=== PATIENT | female | born 1975 | race Caucasian/White ===

== ENCOUNTER 2017-03-21 10:04 | Emergency (ER) | payer SELFPAY ==
[2017-03-21 10:14] VITALS: BP 152/101
[2017-03-21 10:50] LABS: Bacteria,Urine 1+ /HPF (Negative); Bilirubin,Urine NEG (Negative); Blood,Urine MOD (Negative); Ketones,Urine NEG (Negative); Leukocyte Esterase,Urine LG (Negative); Mucus,Urine FEW /HPF; Nitrite,Urine NEG (Negative); Protein,Urine <15 mg/dL mg/dL (Negative); Urobilinogen,Urine < 2.0 mg/dL (<2.0)
[2017-03-21 10:53] LABS: WBC,Urine > 182.0 /HPF (0.0-6.0)
--- NOTE | 2017-03-21 18:47 | Emergency Department Report ---
Entered by ROXANN SHAW, acting as scribe for GREG SANCHEZ NP. ED Female HPI - General Chief complaint: Urogenital-Female Stated complaint: POSS UTI Time Seen by Provider: 03/21/17 10:20 Source: patient Mode of arrival: Ambulatory Limitations: No Limitations - History of Present Illness Initial comments: This is a 41 y/o female, nontoxic, well nourished in appearance, no acute signs of distress with PMHx of GERD, HTN and ulcers, presents with possible UTI that began 1 week ago. Associated symptoms include clear vaginal discharge, urgency, frequency and dysuria but she denies back pain, nausea, vomiting, fever and chills. Denies CP, SOB, abdominal pain, pelvic pain, back pain, stiff neck, n/ v. Patient stated has a yellowisj discharge a couple of weeks ago but denies currently. Patient denies possibility of any STD exposure and is not concerned about it. Symptoms are described as a pressure on bladder and burning with urination. No aggravating factors and no alleviating factors despite taking OTC meds. NKDA. DEVRIES Complaint: dysuria, other (Possible UTI) Onset/Timin -: week(s) (1) Radiation: non-radiating Severity: severe Severity scale (0 -10): 10 Quality: burning, other (pressure) Consistency: constant Improves with: none Worsens with: none Are you Now?: No Last Menstrual Period: 03/06/17 EDC: 12/11/17 Associated Symptoms: vaginal discharge, dysuria, other (frequency, urgency, no back pain). denies: vaginal bleeding, abdominal pain, nausea/vomiting, fever/ chills, headaches, loss of appetite, hematuria, rash, seizure, shortness of breath, syncope, weakness - Related Data Sexually active: Yes Previous Rx's Medication Instructions Recorded Last Taken Type Nitrofurantoin Harlan/M-Cryst 100 mg PO Q12HR 7 Days 03/21/17 Unknown Rx [Macrobid CAP] Allergies Allergy/AdvReac Type Severity Reaction Status Date / Time latex Allergy Swelling Verified 03/21/17 10:14 Penicillins Allergy Anaphylaxis Verified 03/21/17 10:14 ED Review of Systems Comment: All other systems reviewed and negative Constitutional: denies: chills, fever Eyes: as per HPI ENT: denies: ear pain, throat pain Respiratory: denies: cough, shortness of breath, wheezing Cardiovascular: denies: chest pain, palpitations Endocrine: no symptoms reported Gastrointestinal: denies: nausea, vomiting Genitourinary: urgency, dysuria, frequency, discharge (clear) Musculoskeletal: denies: back pain Skin: denies: rash, lesions Neurological: denies: headache, weakness, paresthesias Psychiatric: denies: anxiety, depression Hematological/Lymphatic: denies: easy bleeding, easy bruising ED Past Medical Hx - Past Medical History Hx Hypertension: Yes (no meds) Hx GERD: Yes Additional medical history: ulcers - Surgical History Hx Breast Surgery: Yes (milk ducts right breast removed) Additional Surgical History: tubal ligation - Social History Smoking Status: Current Every Day Smoker Substance Use Type: Alcohol, Marijuana - Medications Home Medications: Home Medications Medication Instructions Recorded Confirmed Last Taken Type Nitrofurantoin Harlan/M-Cryst 100 mg PO Q12HR 7 Days 03/21/17 Unknown Rx [Macrobid CAP] ED Physical Exam - General Limitations: No Limitations General appearance: alert, in no apparent distress - Head Head exam: Present: atraumatic, normocephalic, normal inspection - Eye Eye exam: Present: normal appearance, PERRL, EOMI. Absent: scleral icterus, conjunctival injection, nystagmus, periorbital swelling, periorbital tenderness Pupils: Present: normal accommodation - ENT ENT exam: Present: normal exam, normal orophraynx, mucous membranes moist, TM's normal bilaterally, normal external ear exam - Neck Neck exam: Present: normal inspection, full ROM. Absent: tenderness, meningismus, lymphadenopathy, thyromegaly - Respiratory Respiratory exam: Present: normal lung sounds bilaterally. Absent: respiratory distress, wheezes, rales, rhonchi, stridor, chest wall tenderness, accessory muscle use - Cardiovascular Cardiovascular Exam: Present: regular rate, normal rhythm, normal heart sounds. Absent: bradycardia, tachycardia, irregular rhythm, systolic murmur, diastolic murmur, rubs, gallop - GI/Abdominal GI/Abdominal exam: Present: soft, normal bowel sounds. Absent: distended, tenderness, guarding, rebound, rigid, diminished bowel sounds - External exam: Present: normal external exam. Absent: erythema, swelling, lesions, lacerations, ecchymosis, bleeding Speculum exam: Present: normal speculum exam. Absent: erythema, vaginal discharge, cervical discharge, vaginal bleeding, foreign body, tissue, laceration Bi-manual exam: Present: normal bi-manual exam. Absent: cervical motion tendernes, adnexal tenderness, adnexal mass, uterine enlargement, uterine tenderness - Extremities Exam Extremities exam: Present: normal inspection, full ROM, normal capillary refill. Absent: tenderness, pedal edema, joint swelling, calf tenderness - Back Exam Back exam: Present: normal inspection, full ROM. Absent: tenderness, CVA tenderness (R), CVA tenderness (L), muscle spasm, paraspinal tenderness, vertebral tenderness, rash noted - Neurological Exam Neurological exam: Present: alert, oriented X3, CN II-XII intact, normal gait - Psychiatric Psychiatric exam: Present: normal affect, normal mood. Absent: depressed, agitated - Skin Skin exam: Present: warm, dry, intact, normal color. Absent: rash - Other Other exam information: During external/speculum exam clinical recruiter present Roxann Shaw. ED Course Vital Signs 03/21/17 10:10 Temperature 98.7 F Pulse Rate 66 Respiratory 17 Rate Blood Pressure 152/101 O2 Sat by Pulse 100 Oximetry ED Medical Decision Making - Medical Decision Making Ed course: This is a 41-year-old female that presents with UTI and discharge 1- after my physical exam, a UA, urine hCG qualitative and gonorrhea Chlamydia/ wet prep has been obtained. 2- patient was instructed to follow-up in 3-5 days at medical records for results of gonorrhea/chlamydia. 3- Patient received Macrobid for 7 days at the time of d/c. 4- patient was also instructed to follow-up with her primary care doctor in 3-5 days. 5- at time time of discharge, the patient does not seem toxic or ill in appearance. No acute signs of distress noted. Patient agrees to discharge treatment plan of care. No further questions noted by the patient. ED Disposition Clinical Impression: UTI (urinary tract infection) Disposition: - TO HOME OR SELFCARE Is pt being admited?: No Does the pt Need Aspirin: No Condition: Stable Instructions: Nitrofurantoin Macrocrystals (By mouth), Urinary Tract Infection in Women (ED) Additional Instructions: Return back to medical records and 3-5 days for results of gonorrhea and chlamydia Take full course of antibiotics as prescribed. Follow-up with her primary care doctor in 3-5 days or if symptoms worsen continue an unbearable report back to emergency room as was possible. Prescriptions: Nitrofurantoin Harlan/M-Cryst [Macrobid CAP] 100 mg PO Q12HR 7 Days Referrals: PRIMARY CARE, [Primary Care Provider] - 3-5 Days [facility] [Outside] - 3-5 Days [facility] [Outside] - 3-5 Days ARIAS PONCE MD [Staff Physician] - 3-5 Days Forms: Work/School Release Form(ED) This documentation as recorded by the VALERIA stevens ELIZABETH,accurately reflects the service I personally performed and the decisions made by me,GREG SANCHEZ, MACHINE TRIMMER.
== END 2017-03-21 11:36 | disposition home or self-care (01) ==
LOC: ED 10:04
DX: N39.0 Urinary tract infection, site not specified (principal); I10 Essential (primary) hypertension; K21.9 Gastro-esophageal reflux disease without esophagitis; F17.200 Nicotine dependence, unspecified, uncomplicated; F12.10 Cannabis abuse, uncomplicated
CPT/HCPCS: 81001; 81025; 87210; 87591; 99284

== ENCOUNTER 2017-05-04 15:26 | Emergency (ER) | payer SELFPAY ==
[2017-05-04 16:03] VITALS: BP 180/101
[2017-05-04] MEDS ORDERED: NACL 0.9% 1000 ML 1,000 ML IV ONE (16:03)
[2017-05-04 16:33] LABS: Basophils % (Auto) 0.6 % (0.0-1.8); Eosinophils % (Auto) 1.7 % (0.0-4.3); Hematocrit 39.2 % (30.3-42.9); Hemoglobin 13.3 gm/dl (10.1-14.3); Mean Corpuscular HGB Conc 34 % (30-34); Mean Corpuscular Hemoglobin 32 pg (28-32); Mean Corpuscular Volume 95 fl (79-97); Platelet Count 232 K/mm3 (140-440); Red Blood Count 4.14 M/mm3 (3.65-5.03); White Blood Count 4.6 K/mm3 (4.5-11.0)
[2017-05-04 16:43] LABS: INR 0.95 (0.87-1.13); Partial Thromboplastin Time 27.2 Sec. (24.2-36.6)
[2017-05-04 16:55] LABS: Alanine Aminotransferase 10 units/L (7-56); Albumin 3.7 g/dL (3.9-5); Albumin/Globulin Ratio 1.6 %; Alkaline Phosphatase 47 units/L (35-129); Anion Gap 15 mmol/L; BUN/Creatinine Ratio 5.71; Blood Urea Nitrogen 4 mg/dL (7-17); Calcium 8.3 mg/dL (8.4-10.2); Carbon Dioxide 24 mmol/L (22-30); Chloride 103.3 mmol/L (98-107); Glucose 86 mg/dL (65-100); Lipase 21 units/L (13-60); Potassium 3.6 mmol/L (3.6-5.0); Sodium 139 mmol/L (137-145)
[2017-05-04] MEDS ORDERED: ZOFRAN ODT PO ONE (17:38)
--- NOTE | 2017-05-04 17:38 | Emergency Department Report ---
Chief Complaint: GI Bleed Stated Complaint: SEVERE LOWER ABD PN BLOOD IN BM Time Seen by Provider: 05/04/17 17:34 - HPI History of Present Illness: PT c/o lower abd pain and blood in her stool. PT states she has had the symptoms intermittently for years. PT states she was dx with ulcers in 2007. PT states this episode of pain started this morning. - ROS Review of Systems: + chills + nausea - vomiting + abd pain - dysuria - Exam Vital Signs: Vital Signs 05/04/17 15:59 Temperature 98.1 F Pulse Rate 57 L Blood Pressure 180/101 O2 Sat by Pulse 100 Oximetry Physical Exam: pt is alert and appropriate in triage PT's abd is soft, LLQ ttp MSE screening note: Focused history and physical exam performed. Due to findings the following was ordered: medication ED Medical Decision Making - Lab Data Result diagrams: 05/04/17 16:11 05/04/17 16:20 ED Disposition for MSE Condition: Stable Referrals: PRIMARY CARE, [Primary Care Provider] - 3-5 Days Forms: Accompanied Note
== END 2017-05-04 20:00 | disposition left against medical advice (07) ==
LOC: ED 15:26
DX: R10.32 Left lower quadrant pain (principal); K92.1 Melena; R11.0 Nausea; Z53.21 Procedure and treatment not carried out due to patient leaving prior to being seen by health care provider
CPT/HCPCS: 36415; 80053; 83690; 84703; 85025; 85610; 85730; 86850; 86900; 86901; Q0162